=== PATIENT | male | born 1970 | race Caucasian/White ===

== ENCOUNTER 2022-02-15 22:57 | Emergency (ER) | payer BC, SELFPAY ==
[2022-02-15 22:58] VITALS: BP 135/85; PULSE 85; RESP 16; TEMP 36.6; O2SAT 97; BMI 34.4
--- NOTE | 2022-02-15 23:10 | EDS_ITS ---
HPI HPI - URI History of Present Illness Chief Complaint: Ear Problem Informant: patient Onset/Context/Timing Onset: Today Context: Sudden Onset Timing: Continuous Quality: Muffled Location: Right ear Worsened by: - (Nothing) Relieved by: - (Nothing) Associated Symptoms Associated Symptoms: Negative for Nasal Congestion, Headache, Sinus Pressure, Myalgias, Nausea, Vomiting, Diarrhea, Shortness of Breath, Chest Pain, Nonproductive cough, Hemoptysis or Productive Cough Narrative Narrative: Patient presents with right ear pain that began today. Patient states it began rather suddenly. Patient states he was trying to clean out his right ear and felt pain in his right ear. Patient states his hearing feels muffled on the right side. Patient denies any discharge or drainage. Patient states nothing makes the pain better nothing makes it worse. Patient denies any upper respiratory congestion. Patient denies any nausea or vomiting. Patient denies any shortness of breath or cough. ROS ROS ED Constitutional Constitutional ED: Denies chills or fever(s) Eyes Eyes: Denies blurry vision or change in vision ENT ENT ED: Reports ear pain right; Denies rhinorrhea or sore throat Cardiovascular Cardiovascular: Denies chest pain or palpitations Respiratory/Chest Respiratory/Chest: Denies cough or dyspnea Gastrointestinal Gastrointestinal: Denies nausea or vomiting Genitourinary Genitourinary ED: Denies dysuria or hematuria Musculoskeletal Musculoskeletal: Denies back pain or neck pain Integumentary Denies abscess or rash Neurologic Neurologic: Denies headache(s) or weakness Allergic/Immunologic Allergic/Immunologic ED: Denies mouth swelling or urticaria [facility] Medical History (Updated 02/15/22 @ 23:[address] Steven Capellan DO) Fracture of phalanx of right middle finger Medical History no medical history no medical history Home Medications azithromycin 250 mg tablet 250 mg PO DAILY #4 TABLETS 02/15/22 [Rx Last Taken Unknown] fluticasone propionate 50 mcg/actuation nasal spray,suspension (Flonase Allergy Relief) 1 spray intranasal DAILY #16 grams 02/15/22 [Rx Last Taken Unknown] Allergy/AdvReac Type Severity Reaction Status Date / Time Penicillins Allergy Hives Verified 02/15/22 23:00 Surgical History (Updated 02/15/22 @ 23:[address] Steven Capellan DO) S/P ORIF (open reduction internal fixation) fracture EXAM Physical Exam Const Vital Signs: 02/15/22 22:58 Temperature 98 F Temperature Source Temporal Pulse Rate 85 Respiratory Rate 16 Blood Pressure 135/85 H Blood Pressure Mean 101 Pulse Ox 97 Oxygen Delivery Method Room Air Positive well nourished and well developed General Appearance ED: well developed and NAD HEENT Reports moist mucous membranes HEENT Narrative: There is mild erythema of the right tympanic membrane. The left tympanic membrane is clear. Oral mucosa is pink and moist. Neck is supple. Trachea is midline. No JVD. Throat: posterior oropharynx normal Eyes PERRL and EOMs intact bilaterally Neck supple, no meningeal signs and no JVD Neuro oriented x3, CN's II-XII intact bilaterally and no sensory deficits noted Sensorium / Orientation: alert Motor Exam: strength 5/5 throughout Psych mental status grossly normal MDM MDM MDM Narrative Medical decision making narrative: There is a right otitis media. Patient was given a prescription for Zithromax. Patient was also given a prescription for Flonase. Patient was instructed to follow-up with his primary care physician in 5 to 7 days for reevaluation. Patient understood and was agreeable with the plan. All questions were a nswered. Discharge Plan Triage Chief Complaint: Ear Problem ED Provider: Steven Capellan Dx/Rx/DC Orders Clinical Impression: Acute right otitis media Instructions: ED Otitis Media Antibiotic ... Prescriptions: New azithromycin [azithromycin] 250 mg tablet 250 mg PO DAILY Qty: 4 0RF fluticasone propionate [Flonase Allergy Relief] 50 mcg/actuation spray,suspension 1 spray intranasal DAILY Qty: 16 0RF Rx Instructions: administer into each nostril Primary Care Provider: Florencio Riojas Referrals: Florencio Riojas MD [Primary Care Provider] - 1-2 Weeks Disposition Disposition: Home, Self Care
[2022-02-15] MEDS: Azithromycin 250 MG Tablet 500 MG PO (23:27)
== END 2022-02-15 23:31 | disposition home or self-care (01) ==
LOC: ED 23:25
PROVIDERS: Emergency Provider Emergency Medicine; Visit Provider Emergency Medicine
DX: H66.91 Otitis media, unspecified, right ear (principal)
CPT/HCPCS: 99282

== ENCOUNTER → 2022-05-21 | Outpatient (CLI) | payer BC, SELFPAY ==
--- NOTE | 2022-05-21 10:52 | RAD_ITS ---
STUDY: X-RAY - RIGHT ELBOW REASON FOR EXAM: Male, 51 years old. Elbow pain following a fall. TECHNIQUE: 3 view(s) of the elbow. COMPARISON: None. FINDINGS: Mildly depressed radial head fracture. Normal radiocapitellar and ulnotrochlear articulations. Small joint effusion. RAD/Elbow min 3 Views IMPRESSION: Mildly depressed radial head fracture and joint effusion. Electronically Signed: Nitish León MD at 11:17 EDT ,
--- NOTE | 2022-05-21 10:52 | RAD_ITS ---
STUDY: X-RAY - LEFT ELBOW REASON FOR EXAM: Male, 51 years old. Pain following a fall. TECHNIQUE: 3 view(s) of the elbow. COMPARISON: None. FINDINGS: Nondisplaced radial head fracture. Normal radiocapitellar and ulnotrochlear articulations. Small joint effusion. RAD/Elbow min 3 Views IMPRESSION: Nondisplaced radial head fracture and small joint effusion. Electronically Signed: Nitish León MD at 11:18 EDT ,
== END | disposition home or self-care (01) ==
PROVIDERS: PCP Family Medicine; Referring Provider Family Medicine; Visit Provider Family Medicine
DX: M25.521 Pain in right elbow (principal); M25.522 Pain in left elbow
CPT/HCPCS: 73080

== ENCOUNTER → 2022-10-15 | Outpatient (CLI) | payer BC, SELFPAY ==
--- NOTE | 2022-10-15 13:01 | RAD_ITS ---
STUDY: X-RAY - CERVICAL SPINE REASON FOR EXAM: Male, 51 years old. CERVICAL RADICULOPATHY TECHNIQUE: 6 view(s) of the cervical spine were obtained. COMPARISON: None FINDINGS: Normal anterior atlantoaxial articulation. Normal odontoid process. There is straightening of the normal cervical lordosis. Normal vertebral bodies and endplates. Disc space narrowing throughout the cervical spine. There is multi-level osseous foraminal stenosis. The soft tissue structures are unremarkable. RAD/Cerv Spine 4 or 5 Views IMPRESSION: Multilevel degenerative changes, no acute findings Electronically Signed: Momo Singh MD at 13:21 EDT ,
== END | disposition home or self-care (01) ==
PROVIDERS: PCP Family Medicine; Referring Provider Chiropractor; Visit Provider Chiropractor
DX: M54.12 Radiculopathy, cervical region (principal)
CPT/HCPCS: 72050

== ENCOUNTER 2022-11-30 07:00 | Outpatient (RCR) | payer BC, SELFPAY ==
--- NOTE | 2022-10-23 11:24 | HP.PTEVAL_ITS ---
Patient's Visit Information ROSALINDA REYNA is a 51 year old M referred to Physical Therapy by Dr. Will Morales DC with a diagnosis of CERVICAL RADICULOPATHY. Date of Evaluation: 10/23/22 Physical Therapist: Jeremy Alberts, PT, Cert MDT, OCS - Visit Plan Frequency: 2x /Week Duration: 4 Weeks Plan: PT INTERVETIONS ICTX,US ,CP ,CERVCICAL ROM INTIALLY AVOIDING RIGHT SIDE ,POSTURAL EX'S FOR STRENGTHENING ,THORACIC MOBILITY AND MANUAL THERAPY - Subjective THIS 51 y/o male presents physical therapy with cervical radiculopathy. Patient developed cervical pain with intermittent tingling but more constant since Aug 2022. Location right cervical to posterior shoulder -triceps -/. Descripted as ache dull pain and constant numbness in arm. Seen chiropractor adjustments which has nor helped. Patient has had same condition in 1999 but symptoms got better with PT with cervical traction with symptoms abolished. Aggravating factors slouched ,extension ,and side bending to right. Sneezing/coughing -. Denies nausea/dizziness/UP. Patient symptoms affects job demands with sitting at computer. Patient had x-rays showed DDD ,foraminal stenosis. Patient doesn't have a lot of neck pain just arm pain. Patient did fall in May. SOCIAL: . 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 PALAPION: tender UT/levator. NUERO: c/o paresthesia/tingling ,reflexes C5-6-7 1/3,mytome C7. AROM BUE: WFL. MMT: grossly 4/5 except triceps 4-/5 - Special Tests C/S Radiculapathy - Left Upper limb tension test: Negative C/S Radiculapathy - Right Upper limb tension test: Negative C/S Radiculapathy - Left Spurlings: Negative C/S Radiculapathy - Right Spurlings: Positive C/S Radiculapathy - Left Cervical distraction: Negative C/S Radiculapathy - Right Cervical distraction: Negative C/S Radiculapathy - Left Relief test: Negative C/S Radiculapathy - Right Relief test: Negative Sharp Deborah: Negative Vertebral Artery Test: Negative Alar Ligament Test: Negative Cervical Sitting: Protrusion - Mechanical Response: No effect Cervical Sitting: Protrusion - Symptoms During Testing: Increases Cervical Sitting: Protrusion - Symptoms After Testing: No worse Cervical Sitting: Retraction - Mechanical Response: No effect Cervical Sitting: Retraction - Symptoms During Testing: Increases Cervical Sitting: Retraction - Symptoms After Testing: Worse Cervical Sitting: Retraction-Extension - Mechanical Response: No effect Cerv Sitting: Retraction-Extension - Symptoms During Testing: Increases Cerv Sitting: Retraction-Extension - Symptoms After Testing: Worse Cervical Sitting: Sidebend Right - Mechanical Response: No effect Cervical Sitting: Sidebend Right - Symptoms During Testing: Increases Cervical Sitting: Sidebend Right - Symptoms After Testing: Worse Cervical Sitting: Sidebend Left - Mechanical Response: No effect Cervical Sitting: Sidebend Left - Symptoms During Testing: Decreases Cervical Sitting: Sidebend Left - Symptoms After Testing: Better Cervical Sitting: Rotation Right - Mechanical Response: No effect Cervical Sitting: Rotation Right - Symptoms During Testing: Increases Cervical Sitting: Rotation Right - Symptoms After Testing: No worse Cervical Sitting: Rotation Left - Mechanical Response: No effect Cervical Sitting: Rotation Left - Symptoms During Testing: No effect Cervical Sitting: Rotation Left - Symptoms After Testing: No effect Cervical Sitting: Flexion - Mechanical Response: No effect Cervical Sitting: Flexion - Symptoms During Testing: No effect Cervical Sitting: Flexion - Symptoms After Testing: No effect - Balance/Special Test Scores Oswestry Neck Score: 15 - Goals Goal 1:: Patient to be I with HEP for neck Goal Time Frame: 4-6 Weeks Goal 2:: Patient to demonstrate 50% improvement with decrease radicular symptoms and improved function Goal Time Frame: 4-6 Weeks Goal 3:: Patient improve cervical ROM for function of recovery turn neck to drive car Goal Time Frame: 4-6 Weeks Goal 4:: Patient to improve neck oswestry score by 5 points to improve QOL and function Goal Time Frame: 4-6 Weeks Goal 5:: Patient increase strength rn night by 10 # right to improve function Goal Time Frame: 4-6 Weeks - Rehabilitation Potential Physical Therapy Diagnosis: This patient has cervical radiculopathy with possible lateral foraminal stenosis vs HNP with symptoms worse with side bending to right and extension along with motion testing and positioning + response with cervical traction thus will benefit from skilled PT Rehabilitation Potential: Good - Anticipated Interventions Patient/Client Instruction: Educate patient on: Condition, Plan of Care For the Purpose of:: To decrease pain, To increase ROM, To improve muscle performance and motor function, To increase tolerance to activity/condition/position, To improve ability of physical actions for home/community/work/leisure, To improve health of tissue, To decrease soft tissue restriction, To increase flexibility/ROM, To reduce risk of recurrence Therapeutic Exercise to Include: Strength training, Postural training, Flexibilty training, Active ROM For the Purpose of:: To decrease pain, To increase ROM, To improve muscle performance and motor function, To increase tolerance to activity/condition/position, To improve ability of physical actions for home/community/work/leisure, To improve health of tissue Manual Therapy Techniques to Include: Mobilization Comment: CERVICAL/THORACIC For the Purpose of:: To decrease pain, To increase ROM, To improve muscle performance and motor function, To improve ability to perform ADL's, To improve ability of physical actions for home/community/work/leisure, To improve health of tissue, To decrease soft tissue restriction, To increase flexibility/ROM Cryotherapy (ice pack, ice massage): Yes Ultrasound (thermal/non thermal): Yes Intermittent cervical traction: Yes For the Purpose of:: To decrease pain, To increase ROM, To improve nutrient delivery to tissue, To increase oxygenation perfusion, To improve health of tissue, To decrease soft tissue restriction Thank you for the opportunity to evaluate your patient. For Medicare and Medicare HMO plans, please review the plan of care and approve it. It will need to be FAXED BACK to us at [phone] for Medicare purposes. For Medicare only, by signing this I certify the plan of care. Please let me know if there are questions or concerns regarding this plan of care. Physician Signature: Date:
--- NOTE | 2022-10-23 11:26 | HP.PTEVAL_ITS ---
Patient's Visit Information ROSALINDA REYNA is a 51 year old M referred to Physical Therapy by Dr. Will Morales DC with a diagnosis of CERVICAL RADICULOPATHY. Date of Evaluation: 10/23/22 Physical Therapist: Jeremy Alberts, PT, Cert MDT, OCS - Visit Plan Frequency: 2x /Week Duration: 4 Weeks Plan: PT INTERVETIONS ICTX,US ,CP ,CERVCICAL ROM INTIALLY AVOIDING RIGHT SIDE ,POSTURAL EX'S FOR STRENGTHENING ,THORACIC MOBILITY AND MANUAL THERAPY - Subjective THIS 51 y/o male presents physical therapy with cervical radiculopathy. Patient developed cervical pain with intermittent tingling but more constant since Aug 2022. Location right cervical to posterior shoulder -triceps -4th/5th. Descripted as ache dull pain and constant numbness in arm. Seen chiropractor adjustments which has nor helped. Patient has had same condition in 1999 but symptoms got better with PT with cervical traction with symptoms abolished. Aggravating factors slouched ,extension ,and side bending to right. Sneezing/coughing -. Denies nausea/dizziness/UP. Patient symptoms affects job demands with sitting at computer. Patient had x-rays showed DDD ,foraminal stenosis. Patient doesn't have a lot of neck pain just arm pain. Patient did fall in May. SOCIAL: . 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 PALAPION: tender UT/levator. NUERO: c/o paresthesia/tingling ,reflexes C5-6-7 1/3,mytome C7. AROM BUE: WFL. MMT: grossly 4/5 except triceps 4-/5. CERVICAL ROM : flexion min loss ,extension mod loss pain side bending right mod limited pain ,left min/mod loss ,rotation mod loss pain on right - Special Tests C/S Radiculapathy - Left Upper limb tension test: Negative C/S Radiculapathy - Right Upper limb tension test: Negative C/S Radiculapathy - Left Spurlings: Negative C/S Radiculapathy - Right Spurlings: Positive C/S Radiculapathy - Left Cervical distraction: Negative C/S Radiculapathy - Right Cervical distraction: Negative C/S Radiculapathy - Left Relief test: Negative C/S Radiculapathy - Right Relief test: Negative Sharp Deborah: Negative Vertebral Artery Test: Negative Alar Ligament Test: Negative Cervical Sitting: Protrusion - Mechanical Response: No effect Cervical Sitting: Protrusion - Symptoms During Testing: Increases Cervical Sitting: Protrusion - Symptoms After Testing: No worse Cervical Sitting: Retraction - Mechanical Response: No effect Cervical Sitting: Retraction - Symptoms During Testing: Increases Cervical Sitting: Retraction - Symptoms After Testing: Worse Cervical Sitting: Retraction-Extension - Mechanical Response: No effect Cerv Sitting: Retraction-Extension - Symptoms During Testing: Increases Cerv Sitting: Retraction-Extension - Symptoms After Testing: Worse Cervical Sitting: Sidebend Right - Mechanical Response: No effect Cervical Sitting: Sidebend Right - Symptoms During Testing: Increases Cervical Sitting: Sidebend Right - Symptoms After Testing: Worse Cervical Sitting: Sidebend Left - Mechanical Response: No effect Cervical Sitting: Sidebend Left - Symptoms During Testing: Decreases Cervical Sitting: Sidebend Left - Symptoms After Testing: Better Cervical Sitting: Rotation Right - Mechanical Response: No effect Cervical Sitting: Rotation Right - Symptoms During Testing: Increases Cervical Sitting: Rotation Right - Symptoms After Testing: No worse Cervical Sitting: Rotation Left - Mechanical Response: No effect Cervical Sitting: Rotation Left - Symptoms During Testing: No effect Cervical Sitting: Rotation Left - Symptoms After Testing: No effect Cervical Sitting: Flexion - Mechanical Response: No effect Cervical Sitting: Flexion - Symptoms During Testing: No effect Cervical Sitting: Flexion - Symptoms After Testing: No effect - Balance/Special Test Scores Oswestry Neck Score: 15 - Goals Goal 1:: Patient to be I with HEP for neck Goal Time Frame: 4-6 Weeks Goal 2:: Patient to demonstrate 50% improvement with decrease radicular symptoms and improved function Goal Time Frame: 4-6 Weeks Goal 3:: Patient improve cervical ROM for function of recovery 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 neck to drive car Goal Time Frame: 4-6 Weeks Goal 4:: Patient to improve neck oswestry score by 5 points to improve QOL and function Goal Time Frame: 4-6 Weeks Goal 5:: Patient 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 strength 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 to improve function Goal Time Frame: 4-6 Weeks - Rehabilitation Potential Physical Therapy Diagnosis: This patient has cervical radiculopathy with possible lateral foraminal stenosis vs HNP with symptoms worse with side bending to right and extension along with motion testing and positioning + response with cervical traction thus will benefit from skilled PT Rehabilitation Potential: Good - Anticipated Interventions Patient/Client Instruction: Educate patient on: Condition, Plan of Care For the Purpose of:: To decrease pain, To increase ROM, To improve muscle performance and motor function, To increase tolerance to activity/condition/position, To improve ability of physical actions for home/community/work/leisure, To improve health of tissue, To decrease soft tissue restriction, To increase flexibility/ROM, To reduce risk of recurrence Therapeutic Exercise to Include: Strength training, Postural training, Flexibilty training, Active ROM For the Purpose of:: To decrease pain, To increase ROM, To improve muscle performance and motor function, To increase tolerance to activity/condition/position, To improve ability of physical actions for home/community/work/leisure, To improve health of tissue Manual Therapy Techniques to Include: Mobilization Comment: CERVICAL/THORACIC For the Purpose of:: To decrease pain, To increase ROM, To improve muscle performance and motor function, To improve ability to perform ADL's, To improve ability of physical actions for home/community/work/leisure, To improve health of tissue, To decrease soft tissue restriction, To increase flexibility/ROM Cryotherapy (ice pack, ice massage): Yes Ultrasound (thermal/non thermal): Yes Intermittent cervical traction: Yes For the Purpose of:: To decrease pain, To increase ROM, To improve nutrient delivery to tissue, To increase oxygenation perfusion, To improve health of tissue, To decrease soft tissue restriction Thank you for the opportunity to evaluate your patient. For Medicare and Medicare HMO plans, please review the plan of care and approve it. It will need to be FAXED BACK to us at [phone] for Medicare purposes. For Medicare only, by signing this I certify the plan of care. Please let me know if there are questions or concerns regarding this plan of care. Physician Signature: Date:
--- NOTE | 2023-04-09 11:09 | HP.PTDCSUM ---
Discharge Summary D/C summary: It has been my pleasure to treat ROSALINDA REYNA referred by Dr. Will Morales DC, with the diagnosis of CERVICAL RADICULOPATHY for a total of 12 visit(s). Discharge Date: Please see the following information for a summary of their discharge status. Subjective Subjective: Symptoms intermittent less with tingling Pain Shoulder: Pain Intensity (Out of 10): 0 Overall Improvement % Improvement: 40 Objective Objective/Function: Responded well with traction with no symptoms overall cervical ROM improved with symptoms today Goals Goal 1:: Patient to be I with HEP for neck Goal 2:: Patient to demonstrate 50% improvement with decrease radicular symptoms and improved function Goal 3:: Patient improve cervical ROM for function of recovery turn neck to drive car Goal 4:: Patient to improve neck oswestry score by 5 points to improve QOL and function Goal 5:: 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 Thank you for the referral of this patient. Sincerely, Jeremy Alberts, PT, Cert MDT, OCS Balance/Gait/Functional tests Balance/Special Test Scores Oswestry Neck Score: 15 Improvement % Improvement: 40
== END 2022-11-30 19:00 | disposition home or self-care (01) ==
LOC: PT 07:00
PROVIDERS: PCP Family Medicine; Referring Provider Chiropractor; Visit Provider Chiropractor
DX: M54.12 Radiculopathy, cervical region (principal)
CPT/HCPCS: 97012; 97014; 97035; 97110; 97161; G0283

== ENCOUNTER → 2022-12-14 | Outpatient (CLI) | payer BC, SELFPAY ==
--- NOTE | 2022-12-14 12:32 | MRI_ITS ---
EXAM: MR CERVICAL SPINE WITHOUT INTRAVENOUS CONTRAST CLINICAL INDICATION: XR Cervical showed DDD along with chronic neck pain and R finger TECHNIQUE: Multiplanar and multisequence MR images of the cervical spine without intravenous contrast were performed. COMPARISON: Plain films showing mild to moderate disc space narrowing at C4-C7 with mild anterior spondylosis and reversal of the usual lordotic curvature. FINDINGS: There is straightening and mild reversal of the usual lordotic curvature. Moderate disc space narrowing at C4-C7 with mild anterior spondylosis. Minimal narrowing of the right paracentral ventral thecal sac at C4-5, no eleanor spinal stenosis or cord impingement. Moderate bilateral neural foraminal stenosis at C4-5 and C5-6 and moderate-marked right neural foraminal narrowing at C6-7. MRI/Spine Cervical (Routine) IMPRESSION: No eleanor spinal stenosis, cord impingement, or cord lesions. Mild narrowing of the right ventral thecal sac at C4-5 due to mild asymmetric osteophyte-disc complex. Multilevel neural foraminal stenosis, especially on the right at C6-7. Electronically Signed: Rosita Cabrera MD at 8:33 EDT ,
== END | disposition home or self-care (01) ==
PROVIDERS: PCP Family Medicine; Referring Provider Family Medicine; Visit Provider Family Medicine
DX: M54.2 Cervicalgia (principal)
CPT/HCPCS: 72141

== ENCOUNTER → 2023-03-06 | Outpatient (CLI) | payer BC, SELFPAY ==
--- NOTE | 2023-03-06 13:50 | NEURO ---
NCS and/or EMG Patient Report Ordering Doctor: Mima Galeana DATE OF SERVICE: 03/06/23 Victorino presents for electrodiagnostic testing of the right upper limb. He reports intermittent pain and numbness in the arm, though he states it is better over the last few weeks. Electrodiagnostic findings: Right median motor nerve demonstrates normal distal latency and amplitude with reduced conduction velocity. Right ulnar motor nerve demonstrates normal distal latency and amplitude with normal conduction across the elbow. Normal median and ulnar F-waves. Prolonged right median sensory latency at the wrist. Normal ulnar and radial sensory responses. Needle EMG testing was performed in the right upper limb. All muscles tested showed no evidence of denervation with normal motor unit action potentials. Electrodiagnostic impression: This is an abnormal study in the right upper limb 1. Electrodiagnostic findings suggestive of right-sided median mononeuropathy. However, the patient does not have clinical findings consistent with carpal tunnel syndrome. 2. There is no electrodiagnostic evidence for ulnar neuropathy, including cubital tunnel syndrome. 3. No electrodiagnostic evidence for cervical radiculopathy. Multi Select Codes Neurology Neurology Interp Codes: 65638-50 Musc test done w/n test comp (interp) and 88205-63 Nrv cndj test 7-8 studies (interp)
== END | disposition home or self-care (01) ==
LOC: PSN 09:49
PROVIDERS: PCP Family Medicine; Referring Provider Family Medicine; Visit Provider Family Medicine
DX: R20.0 Anesthesia of skin (principal)
CPT/HCPCS: 95886; 95910

== ENCOUNTER → 2024-02-10 | Outpatient (CLI) | payer BC, SELFPAY ==
[2024-02-10 18:24] LABS: AST(SGOT) 20 U/L (15-37); Alanine Aminotransfer ALT/SGPT 31 U/L (16-61); Albumin, Serum 3.7 g/dL (3.2-5.0); Alkaline Phosphatase 63 U/L (45-117); Bilirubin, Direct 0.08 mg/dL (0.00-0.30); Globulin 3.9 g/dL (2.2-4.2); Protein, Total 7.6 g/dL (6.4-8.2)
== END | disposition home or self-care (01) ==
LOC: MFPLAB 15:11
PROVIDERS: PCP Family Medicine; Visit Provider Family Medicine
DX: B35.4 Tinea corporis (principal)
CPT/HCPCS: 36415; 80076